=== PATIENT | female | born 1975 | race Caucasian/White ===

== ENCOUNTER → 2018-06-19 | Outpatient (CLI) | payer OTHER ==
[~2018-06-19] MED LIST: ALBU90OI INH; AMOX500 PO; AMOX875 PO; AZIT250 PO; CEPH500 PO; CITA20 PO; CODGUAEL PO; DIAZ10; GUAI100SY; GUAI100SY PO; HYDACE5; HYDACE5 PO; IBUP800 PO; LOSA25; OLME20 PO; PRED20 PO; PROC10 PO; PROCODE120 PO; RXCEPH500 PO; RXCODACET PO; RXCODGUASY PO; RXPROCODSY PO
[2018-06-19 19:29] LABS: Anion Gap 10 mmol/L (6-16); Blood Urea Nitrogen 7 mg/dL (8-24); Bun/Creatinine Ratio 11.6 (12.0-20.0); CO2, Blood 22 mmol/L (21-32); Calcium, Blood 8.9 mg/dL (8.5-10.1); Chloride, Blood 106 mmol/L (98-108); Glomerular Filtration Rate >60 (60-); Glucose, Blood 94 mg/dL (70-99); Potassium, Blood 4.1 mmol/L (3.5-5.5); Sodium, Blood 138 mmol/L (136-145)
== END ==
LOC: LAB 14:35 → LAB SHORT 14:35
PROVIDERS: Physician Assistant
DX: I10 Essential (primary) hypertension (principal)
CPT/HCPCS: 80048

== ENCOUNTER → 2019-08-01 | Outpatient (CLI) | payer OTHER ==
[2019-08-01 20:43] LABS: Anion Gap 7 mmol/L (6-16); Blood Urea Nitrogen 13 mg/dL (8-24); Bun/Creatinine Ratio 20.3 (12.0-20.0); CO2, Blood 27 mmol/L (21-32); Calcium, Blood 9.8 mg/dL (8.5-10.1); Chloride, Blood 99 mmol/L (98-108); Creatinine, Blood 0.64 mg/dL (0.40-1.00); Glomerular Filtration Rate >60 (60-); Glucose, Blood 93 mg/dL (70-99); Potassium, Blood 3.8 mmol/L (3.5-5.5); Sodium, Blood 133 mmol/L (136-145)
== END | disposition home or self-care (01) ==
LOC: LAB SHORT 19:27 → LAB 19:27
PROVIDERS: Physician Assistant
DX: I10 Essential (primary) hypertension (principal)
CPT/HCPCS: 80048

== ENCOUNTER → 2021-06-08 | Outpatient (CLI) | payer OTHER | LOC: LAB SHORT 14:01 → LAB 14:01 | DX: R21 Rash and other nonspecific skin eruption (principal) | CPT/HCPCS: 88312 ==

== ENCOUNTER 2022-12-22 20:37 | Emergency (ER) | payer OTHER ==
[~2022-12-22] VITALS: Ht 162.6 cm; Wt 98.9 kg
[2022-12-22] MEDS ORDERED: DILTIAZEM 24HR120 M2 PO (20:53)
[2022-12-22] MEDS ORDERED: BENAZEPRIL HCL40 M4 PO (20:53)
[2022-12-22] MEDS ORDERED: HYDCHL25 PO (20:53)
== END 2022-12-22 21:40 | disposition home or self-care (01) ==
LOC: ER 20:37
DX: S61.211A Laceration without foreign body of left index finger without damage to nail, initial encounter (principal); I10 Essential (primary) hypertension; W26.0XXA Contact with knife, initial encounter; Z87.891 Personal history of nicotine dependence
CPT/HCPCS: 90714

== ENCOUNTER → 2025-01-21 | Outpatient (CLI) | payer OTHER ==
[~2025-01-21] MED LIST changes: +BENAZEPRIL HCL40 M4 PO; +DILTIAZEM 24HR120 M2 PO; +HYDCHL25 PO
[2025-01-21 18:06] LABS: BASOPHILS ABSOLUTE AUTO 0.04 K/mm3 (0.00-0.23); BASOPHILS PERCENT AUTO 0 % (0-2); EOSINOPHILS ABSOLUTE AUTO 0.34 K/mm3 (0.00-0.68); EOSINOPHILS PERCENT AUTO 4 % (0-6); Hematocrit 42.7 % (33.0-51.0); IMMATURE GRAN ABSOLUTE AUTO 0.03 K/mm3 (0.00-0.10); IMMATURE GRAN PERCENT AUTO 0 % (0-1); LYMPHOCYTES ABSOLUTE AUTO 3.15 K/mm3 (0.84-5.20); LYMPHOCYTES PERCENT AUTO 35 % (21-46); MONOCYTES ABSOLUTE AUTO 0.64 K/mm3 (0.16-1.47); MONOCYTES PERCENT AUTO 7 % (4-13); Mean Corpuscular HGB 31.1 pg (26.0-34.0); Mean Corpuscular HGB Conc 35.1 g/dL (31.5-36.5); Mean Corpuscular Volume 89 fL (80-100); Mean Platelet Volume 9.3 fL (9.1-12.4); NEUTROPHILS ABSOLUTE AUTO 4.93 K/mm3 (1.96-9.15); NEUTROPHILS PERCENT AUTO 54 % (41-73); Platelet Count 418 K/mm3 (150-400); RDW Coefficient Variation 12.4 % (11.7-14.2); RDW Standard Deviation 40.3 fL (35.1-46.3); Red Blood Cell Count 4.82 M/mm3 (3.80-5.20); White Blood Cell Count 9.13 K/mm3 (4.00-11.30)
[2025-01-21 20:09] LABS: Alanine Aminotransfer (ALT/SGP 42 U/L (12-78); Albumin, Blood 4.2 g/dL (3.4-5.0); Albumin/Globulin Ratio 1.1 (0.8-1.8); Alk Phos 60 U/L (50-136); Anion Gap 9 mmol/L (3-11); Aspartate Aminotrans (AST/SGOT 27 U/L (12-37); Bilirubin, Total 0.4 mg/dL (0.1-1.0); Blood Urea Nitrogen 11 mg/dL (8-24); Bun/Creatinine Ratio 18.2 (12.0-20.0); CHOL/HDL RATIO 3.7; CO2, Blood 28 mmol/L (21-32); Calcium, Blood 9.4 mg/dL (8.5-10.1); Chloride, Blood 98 mmol/L (98-108); Cholesterol 253 mg/dL (50-200); Creatinine, Blood 0.61 mg/dL (0.40-1.00); Globulin, Blood 3.7 g/dL (2.2-4.0); Glomerular Filtration Rate 111 (60-); Glucose, Blood 92 mg/dL (70-99); HDL Cholesterol 68 mg/dL (>39); LDL/HDL RATIO 2.5; Low Density Lipoprotein Chol 170 mg/dL (0-110); Potassium, Blood 3.4 mmol/L (3.5-5.5); Sodium, Blood 132 mmol/L (136-145); Total Protein, Blood 7.9 g/dL (6.4-8.2); Triglycerides 76 mg/dL (30-160); Very Low Density Lipoprot Chol 15 mg/dL (6-32)
== END ==
LOC: LAB SHORT 17:37 → LAB 17:37
PROVIDERS: Nurse Practitioner Family
DX: I10 Essential (primary) hypertension (principal); E66.9 Obesity, unspecified; E55.9 Vitamin D deficiency, unspecified
CPT/HCPCS: 80053; 80061; 82306; 83036; 84443; 85025

== ENCOUNTER 2025-09-09 07:28 | Day surgery (SDC) | payer BC, OTHER ==
[~2025-09-09] VITALS: Ht 162.6 cm; Wt 120.3 kg
[~2025-09-09 07:28] MED LIST changes: +CeFAZolin Sodium 2,000 MG VIAL ONE; +MULTI-VITAMIN1 EAC2 PO; +NS 500 ML IV ONE; +REXULTI1 MG PO; +WEGOVY0.25 MG/0. SC
[2025-09-09] MEDS ORDERED: LORAZEPAM0.5 MG PO (08:01)
[2025-09-09] MEDS ORDERED: Cyclobenzaprine5 MG PO (08:03)
[2025-09-09] MEDS ORDERED: NAPR220 PO (08:05)
[2025-09-09] MEDS ORDERED: Aspir 8181 MG PO (08:05)
[2025-09-09] MEDS ORDERED: IBUP200 PO (08:06)
[2025-09-09] MEDS ORDERED: DYAZIDE 37.5-21 EACH PO (08:07)
[2025-09-09] MEDS ORDERED: CeFAZolin Sodium 3,000 MG VIAL ONE (08:13)
[2025-09-09] MEDS ORDERED: NS 500 ML IV ONE (08:14)
--- NOTE | 2025-09-09 08:16 | NUR ---
09/09/25 0816 Barbara Rao TIME OUT PERFORMED AT BEDSIDE AT [address] ACOSTA IMMEDIATELY PRIOR TO INJECTION OF 7ML OF SOLUTION CONSISTING OF 9ML 1% LIDOCAINE W/EPI [id number] AND 1ML 8.4% SODIUM BICARBONATE INTO L HAND. PT TOLERATED PROCEDURE WELL.
[2025-09-09] MEDS ORDERED: HYDROcodone 5-APAP 325 TAB ONE (09:04)
[2025-09-09 09:16] VITALS: BP 138/94
== END 2025-09-09 09:33 | disposition home or self-care (01) ==
LOC: ORSCSDS 07:28
PROVIDERS: Orthopaedic Surgery
PROC: 01N54ZZ Release Median Nerve, Percutaneous Endoscopic Approach (ICD-10-PCS; principal; 2025-09-09 09:00)
DX: G56.03 Carpal tunnel syndrome, bilateral upper limbs (principal); I10 Essential (primary) hypertension; F41.9 Anxiety disorder, unspecified; Z79.82 Long term (current) use of aspirin; Z79.899 Other long term (current) drug therapy; Z87.891 Personal history of nicotine dependence; E66.9 Obesity, unspecified; Z68.42 Body mass index [BMI] 45.0-49.9, adult
CPT/HCPCS: A9270; J0690; J7040